=== PATIENT | female | born 1985 | race African-American/Black ===

== ENCOUNTER 2018-12-07 17:48 | Emergency (ER) | payer SELFPAY ==
[~2018-12-07] VITALS: Ht 175.3 cm; Wt 102.5 kg
[2018-12-07 18:15] VITALS: BP 127/81; Ht 175.3 cm; Wt 102.5 kg
== END 2018-12-07 22:22 | disposition home or self-care (01) ==
LOC: ED 17:48
DX: L02.414 Cutaneous abscess of left upper limb (principal)